=== PATIENT | female | born 1990 | race Caucasian/White ===

== ENCOUNTER 2022-11-30 07:30 | Outpatient (RCR) | payer OTHER, SELFPAY | END 2023-03-09 23:59 | disposition home or self-care (01) | PROVIDERS: PCP Physician Assistant Medical; Visit Provider Physician Assistant Medical | DX: M77.8 Other enthesopathies, not elsewhere classified (principal); Z51.89 Encounter for other specified aftercare | CPT/HCPCS: 97033; 97035; 97140; 97165 ==

== ENCOUNTER 2024-12-05 17:52 | Outpatient (CLI) | payer OTHER, SELFPAY ==
[2024-12-05 18:02] VITALS: BP 120/63; PULSE 92; RESP 16; TEMP 36.9
--- NOTE | 2024-12-05 19:34 | PC.OBNST ---
NST Note NST Note Start: 12/05/24 19:11 Freq: ONCE Status: Active Protocol: Document 12/05/24 19:31 ABP (Rec: 12/05/24 19:34 ABP [id number]) NST Note 4 Para (# of births) 2 EDC 02/23/25 Gestational Age In Weeks & Days 28 Weeks & 4 Days High Risk Factors Diabetes - Preexisting Type II Insulin Patient Presented with Complaint(s) of Decreased movement, Headache,Other Other Complaints Patient having low blood sugars after 20 units of Novolog with lunch. Reactive Yes Appropriate for Gestational Age Yes YUE Hilliard RNC Date 12/05/24 Reactive Yes Appropriate for Gestational Age Yes YUE Hickey RN Date 12/05/24 OB NST charge Yes Complete NST Note via Write Note Yes The provider's electronic signature indicates the NST is reactive/appropriate for gestational age. *Note to provider: If an addendum is required, open the patient's chart and click on the note under the Nurse/Allied Health tab.
== END 2024-12-05 18:40 | disposition home or self-care (01) ==
LOC: OB OUT 17:53 → OB 17:54
PROVIDERS: PCP Physician Assistant Medical; Visit Provider Family Medicine
DX: O24.419 Gestational diabetes mellitus in pregnancy, unspecified control (principal); O36.8130 Decreased fetal movements, third trimester, not applicable or unspecified; Z3A.28 28 weeks gestation of pregnancy
CPT/HCPCS: 59025; G0463

== ENCOUNTER 2025-02-19 16:39 | Inpatient (IN) | payer OTHER, SELFPAY ==
[2025-02-19 16:55] VITALS: RESP 16; TEMP 36.9
--- NOTE | 2025-02-19 17:10 | PM.OBHPLI ---
OB - H&P: HPI Labor/Induction History of Present Illness Date Seen: 02/19/25 Chief Complaint: The patient is a 34 year old at 39.3 weeks gestation by first trimester, who presents for induction of labor secondary to T2DM on insulin. Chief complaint: IOL - Type 2 DM : 4 Para: 2 Narrative: Vilma Richardson is a 34 year old at 39.3 weeks' gestation by first trimester US who presents today for IOL secondary to T2DM on insulin. Was seen in clinic earlier today for BPP and score was 6/8 with points off for breathing. She was scheduled for induction today. Additional notable pre-yuko factors: history of pituitary microadenoma Depression Obesity AMA at delivery (age 34) hx of anemia hx of latent TB (treated in 2009) Idiopathic scoliosis of thoracic spine heart murmur She reports she has been feeling well. Denies headache, vision changes, RUQ pain, or changes in edema. Has had normal movement. Reports she has been cramping/viridiana at home. Denies vaginal bleeding or LOF. History of Present Dating criteria: based on 1st trimester US only care: good care Labs Blood type: O (+) positive Rubella: nonimmune RPR/VDLR: nonreactive GBS status: negative HBsAG: negative Meds Home Medications and Allergies Home Medications ?Medication ?Instructions ?Recorded ?Confirmed ?Type aspirin 81 mg capsule 81 mg PO DAILY 12/05/24 02/19/25 History docosahexaenoic acid 200 mg 200 mg PO DAILY 12/05/24 02/19/25 History capsule ( DHA) insulin aspart U-100 100 unit/mL 20 unit subcut TID 12/05/24 02/19/25 History (3 mL) subcutaneous pen (Novolog FlexPen U-100 Insulin aspart) ferrous sulfate 325 mg (65 mg 325 mg PO DAILY 02/19/25 02/19/25 History iron) tablet (iron) Allergies Allergy/AdvReac Type Severity Reaction Status Date / Time No Known Drug Allergies Allergy Verified 02/19/25 16:49 OB - H&P: Exam Physical Exam: Narrative: Gen: alert, pleasant, NAD Resp: breathing comfortable on RA, CTA b/l Heart: RRR, systolic murmur noted (c/w prior) Abd: gravid, nontender to palpation : cervix 1 cm/thick/high Extremities: trace b/l LE edema Detailed Labor and Delivery Exam: Patient Gravid: yes Dilation (cm): 1 Tachysystole: No Fetus (Single): Amniotic Membrane Status: intact Heart Rate Baseline: 140 Monitor Accelerations: Present Monitor Decelerations: None Snf Variability: Moderate (6-25) OB - Problem Based A/P Additional Plan (1) Term : Status: Acute (2) Type 2 diabetes mellitus in : Status: Acute (3) Anemia affecting : Status: Acute Plan Patient presents for IOL secondary to Type 2 diabetes on insulin. Blood sugars have been well controlled in . Last A1C on 01/28/25 was 5.6%. Growth US at 36w2d with EFW 2866 g, 49th percentile. IOL - discussed options including Cook catheter + pitocin vs Cytotec. Patient prefers Cytotec. Plan on vaginal cytotec per protocol. T2DM on insulin - blood sugar monitoring per protocol - while eating, continue to follow Novolog dosing as usual (breakfast 22 units, lunch 22 units, dinner 24 units) - Lantus dosing to be reduced overnight; usually administers 7 units HS. Plan on 4 units HS this evening. Anemia - on PO iron history of pituitary microadenoma Depression Obesity AMA at delivery (age 34) Hx of latent TB (treated in 2009) Idiopathic scoliosis of thoracic spine Heart murmur - noted, stable Dr. Quinn will be managing induction overnight tonight. I will resume management on 02/20/25 at 0700. Inez Canales DO
[2025-02-19 17:23] LABS: Hematocrit 35.6 % (33.0-51.0); Hemoglobin* 11.8 gm/dL (12.0-16.0); Immature Granulocytes Abs Auto 0.02 K/uL (0.00-0.30); Immature Granulocytes Pct Auto 0.2 %; Lymphocytes Absolute Auto 2.04 K/uL (0.90-2.90); Mean Corpuscular HGB Conc 33 gm/dL (32-36); Mean Corpuscular Hemoglobin 28 pg (26-34); Mean Corpuscular Volume 85 fL (80-100); RDW Coefficient of Variation % 15.6 % (11.5-15.5); Red Blood Count 4.17 m/uL (4.00-5.20); White Blood Count* 8.21 K/uL (4.50-11.00)
[2025-02-19 17:27] LABS: Slide Review Reflex No
[2025-02-19 17:42] VITALS: BMI 36.2
[2025-02-19] MEDS: INSULIN ASPART 100 UNIT/ML SUBCUT (18:12)
[2025-02-19 19:42] VITALS: BP 138/77; PULSE 88; RESP 16; TEMP 36.8
[2025-02-20] VITALS (33 sets, daily range): BP systolic 117–143; BP diastolic 56–83; PULSE 59–91; RESP 16–18; TEMP 36.4–36.9; O2SAT 97–100
[2025-02-20 04:11] LABS: Hematocrit 34.1 % (33.0-51.0); Hemoglobin* 11.3 gm/dL (12.0-16.0); Mean Corpuscular HGB Conc 33 gm/dL (32-36); Mean Corpuscular Hemoglobin 29 pg (26-34); Mean Corpuscular Volume 86 fL (80-100); Red Blood Count 3.95 m/uL (4.00-5.20); White Blood Count* 9.97 K/uL (4.50-11.00)
[2025-02-20 04:17] LABS: Slide Review Reflex No
[2025-02-20 04:26] LABS: Alanine Aminotransferase* 41 U/L (4-35); Aspartate Amino Transferase* 47 U/L (12-35); Blood Urea Nitrogen* 6 mg/dL (5-24); Creatinine* 0.5 mg/dL (0.5-1.5); Est. Creatinine Clearance* 124.21; Estimated Glomerular Filt Rate 125 ml/min
[2025-02-20 04:46] LABS: Protein Creatinine Ratio Urine 0.66 (0-0.19)
[2025-02-20] MEDS: INSULIN ASPART 100 UNIT/ML SUBCUT ×2 (08:00→12:29)
--- NOTE | 2025-02-20 08:03 | PM.OBPNL ---
Subjective Date Seen: 02/20/25 Narrative: Patient had two elevated BPs overnight that were not 4 hours apart. Pre-eclampsia labs obtained notable for PCR 0.66, AST 47, ALT 41. PCR elevated in the context of bloody show, complicating interpretation. BP have been normal since. She did pass one large clot but has been stable since. She is s/p 4 doses of vaginal cytotec. Reports ctx feel like menstrual cramps. Objective Exam: Gen: alert, pleasant, comfortable Resp: breathing comfortably on room air Cervix: 4/50%/-3 (cortez 6) Vital Signs: Last Vital Signs Temp 97.9 F 02/20/25 03:42 Pulse 79 02/20/25 07:34 Resp 18 02/20/25 03:42 BP 126/74 02/20/25 07:34 Pulse Ox 97 02/20/25 07:34 Contractions Contraction Frequency: Q2-6 min Contraction pattern: Irregular Assessment Assessment: induction ongoing Heart Rate Baseline: 140 Assisted Variability: Moderate (6-25) Monitor Accelerations: Absent Monitor Decelerations: None Plan Plan: Ongoing IOL secondary to Type 2 diabetes on insulin. Blood sugars have been well controlled in . Last A1C on 01/28/25 was 5.6%. Growth US at 36w2d with EFW 2866 g, 49th percentile. IOL - s/p 4 doses vaginal cytotec - head is not well applied to cervix so deferred AROM at this time - plan to begin Pitocin titration Elevated blood pressure & proteinuria - Pt with two elevated BPs 40 minutes apart & elevated PCR (0.66) in the setting of vaginal bleeding - at this time, patient does not meet criteria for pre-eclampsia. Should she have another elevated pressure, then she would meet criteria. T2DM on insulin - blood sugar monitoring per protocol - while eating, continue to follow Novolog dosing as usual (breakfast 22 units, lunch 22 units, dinner 24 units) - Lantus dosing to be reduced overnight; usually administers 7 units HS. Plan on 4 units HS this evening. Anemia - on PO iron history of pituitary microadenoma Depression Obesity AMA at delivery (age 34) Hx of latent TB (treated in 2009) Idiopathic scoliosis of thoracic spine Heart murmur - noted, stable Inez Canales DO
[2025-02-20] MEDS: OXYTOCIN 30 unit/500 ML in NS 30 UNIT/500 ML BAG IVPB (08:10)
[2025-02-20] MEDS: LACTATED RINGERS 1000 ML 1,000 ML 75 ML IV (08:16)
--- NOTE | 2025-02-20 12:15 | P.OBPN_ITS ---
Subjective Date Seen: 02/20/25 Narrative: Pt has been ambulating. Has passed one additional small clot since this morning. Noticing some lower back pain and is becoming more uncomfortable with contractions. Objective Vital Signs: Last Vital Signs Temp 97.5 F L 02/20/25 11:32 Pulse 73 02/20/25 11:32 Resp 16 02/20/25 09:45 BP 126/75 02/20/25 11:32 Pulse Ox 99 02/20/25 11:32 Pelvic Exam Dilation (cm): 6 Effacement (%): 50 Station: -3 Contractions Contraction Frequency: Q2-3 min Contraction pattern: Regular Pitocin Rate (mU/min): 6 Assessment Station: -3 Amniotic Membrane Status: AROM (light meconium-stained fluid) Heart Rate Baseline: 130 Plate And Frame Filter Operator Variability: Moderate (6-25) Monitor Accelerations: Present Monitor Decelerations: Variable Plan Plan: AROM with light mec-stained fluid. Plan for peds provider to attend delivery. Continue pitocin titration. Anticipate .
[2025-02-20] MEDS: ONDANSETRON 2 MG/ML inj 4 MG IV (15:29)
--- NOTE | 2025-02-20 15:42 | PM.OBPNL ---
Subjective Date Seen: 02/20/25 Narrative: Uncomfortable with contractions. Using nitrous oxide for pain management. Feeling more pressure with contractions. Consents to exam. Objective Vital Signs: Last Vital Signs Temp 97.8 F 02/20/25 14:49 Pulse 73 02/20/25 14:49 Resp 16 02/20/25 09:45 BP 126/66 02/20/25 14:49 Pulse Ox 99 02/20/25 13:27 Pelvic Exam Dilation (cm): 8 Effacement (%): 90 Station: 0 Contractions Contraction Frequency: Q2-3 min Contraction pattern: Regular Pitocin Rate (mU/min): 10 Assessment Assessment: active labor Station: 0 Amniotic Membrane Status: AROM (light meconium-stained fluid) Heart Rate Baseline: 130 Monitor Accelerations: Present Monitor Decelerations: Early Plan Plan: Continue current management. Fluid has been clear - has not had additional meconium-staining noted since AROM. BP have been WNL. Anticipate .
[2025-02-20] MEDS: LIDOCAINE 1 % PF 30 ML INJECTION (16:40)
[2025-02-20] MEDS: miSOPROStoL 800 MCG/4 TABLET PR (16:59)
[2025-02-20] MEDS: ACETAMINOPHEN 500 MG TABLET 1000 MG PO (17:17)
--- NOTE | 2025-02-20 17:25 | W.PM.VAGDEL1 ---
Procedure Procedure Done: Global Events: Labor Augmentation, AMA and Other (Type 2 Diabetes on insulin) Intrapartal Events: Labor Augmentation, Labor Induction and Other (light meconium fluid) Delivery augmentation: rupture of membranes and pitocin Delivery monitor: external FHT Route of delivery: Laceration description: Perineal - 2nd Degree Delivery repair: Vicryl Estimated blood loss (mL): 200 Anesthesia type: Local (for perineal repair) Narrative: Patient is a G4 now P3 who presented for IOL secondary to T2DM on insulin. Induction began at 39.3 weeks' gestation and she delivered at 39.4. course is notable for T2DM on insulin and anemia. She received 4 doses of vaginal cytotec, the pitocin titration was started when cervix was favorable. AROM occurred on 02/20 at 12:09 PM with light meconium-stained fluid noted. She was complete at 1619 and stage II began. She pushed effectively and delivered a viable male at 16:23. Apgars 7 and 8. There was a nuchal cord x1. There was a 2nd degree perineal tear that was repaired in the usual fashion with 3-0 Vicryl. She received Pitocin post-. Placenta delivered spontaneously and intact. She had a steady flow of vaginal bleeding following delivery and rectal cytotec was administered. Following this, bleeding was appropriate. There was a 3-vessel cord. Regarding diabetes management, plan to return to usual HS Lantus this evening (7 units) and sliding-scale insulin with meals. Infant Infant Gender: Male presentation: vertex Placental Delivery Description: Spontaneous Cord Description: 3 Vessels and Nuchal Cord
[2025-02-20] MEDS: IBUPROFEN 600 MG TABLET PO (20:31)
[2025-02-21] MEDS: ACETAMINOPHEN 500 MG TABLET 1000 MG PO ×3 (03:04→15:08)
[2025-02-21 03:07] VITALS: BP 98/61; PULSE 63; RESP 16; TEMP 36.3; O2SAT 98
[2025-02-21] MEDS: DOCUSATE SODIUM 100 MG CAPSULE PO (04:19)
[2025-02-21] MEDS: IBUPROFEN 600 MG TABLET PO ×2 (04:24→12:41)
[2025-02-21 06:18] LABS: Hemoglobin* 10.3 gm/dL (12.0-16.0)
--- NOTE | 2025-02-21 07:48 | PM.OBDSVD1 ---
DS: Providers Provider Date Seen: 02/21/25 Date of admission: 02/19/25 16:39 Primary care physician: Inez Canales DO Admitting Clinician: Inez Canales DO Attending Physician on discharge: Lea Quinn MD DS: Diagnosis Discharge Diagnosis (1) Normal vaginal delivery: Status: Acute Problem details: 34 yo who presented for IOL secondary to T2DM on insulin, had of Bb. (2) Anemia affecting : Status: Acute Problem details: Hb 10.3 on day of discharge (3) Type 2 diabetes mellitus in : Status: Acute Problem details: Type II diabetes, not on medications prior to . Had long- and short-acting insulin during . Did not require mealtime insulin . Lantus decreased to 5 units at discharge. Recommend patient stop Lantus if she has AM fasting BG <90 or has any symptomatic hypoglycemia. Follow-up with PCP at weight check. Exam Narrative: Exam Narrative: Gen: No acute distress CV: Regular rate and rhythm, normal S1,S2, no murmurs Resp: Normal rate and effort, clear to auscultation bilaterally Abd: Soft, uterus firm and nontender at umbilicus Ext: Warm, dry, 2+ pedal pulses, trace edema bilaterally. Calves non-tender to palpation. Const: Vital Signs, click to edit/add: Vital Signs - 24 hr 02/20/25 08:57 02/20/25 09:43 02/20/25 09:44 Temperature Pulse Rate 83 86 Pulse Rate [Pulse Oximeter] Respiratory Rate Blood Pressure 117/72 119/65 Blood Pressure [Le ft Arm] Pulse Oximetry 98 Oxygen Delivery Me thod 02/20/25 09:45 02/20/25 10:33 02/20/25 11:32 Temperature 98.5 F 97.5 F L Pulse Rate 77 73 Pulse Rate [Pulse Oximeter] Respiratory Rate 16 Blood Pressure 132/76 126/75 Blood Pressure [Le ft Arm] Pulse Oximetry 99 Oxygen Delivery Me thod 02/20/25 13:27 02/20/25 14:49 02/20/25 16:37 Temperature 97.9 F 97.8 F Pulse Rate 81 73 Pulse Rate [Pulse Oximeter] Respiratory Rate Blood Pressure 132/80 126/66 Blood Pressure [Le ft Arm] Pulse Oximetry 99 [facility] 02/20/25 16:41 02/20/25 16:42 02/20/25 16:45 Temperature Pulse Rate Pulse Rate [Pulse Oximeter] Respiratory Rate 18 16 Blood Pressure Blood Pressure [Le ft Arm] Pulse Oximetry 99 Oxygen Delivery Nj thod 02/20/25 16:47 02/20/25 16:51 02/20/25 16:52 Temperature Pulse Rate 67 Pulse Rate [Pulse Oximeter] Respiratory Rate 16 Blood Pressure 128/73 Blood Pressure [Le ft Arm] Pulse Oximetry 99 100 Oxygen Delivery Nj thod 02/20/25 16:52 02/20/25 16:57 02/20/25 17:02 Temperature Pulse Rate Pulse Rate [Pulse Oximeter] Respiratory Rate 18 Blood Pressure Blood Pressure [Le ft Arm] Pulse Oximetry 99 99 [facility] 02/20/25 17:07 02/20/25 17:08 02/20/25 17:08 Temperature Pulse Rate 85 Pulse Rate [Pulse Oximeter] Respiratory Rate 18 Blood Pressure 130/71 Blood Pressure [Le ft Arm] Pulse Oximetry 100 Oxygen Delivery Nj thod 02/20/25 17:23 02/20/25 17:23 02/20/25 17:38 Temperature Pulse Rate 66 68 Pulse Rate [Pulse Oximeter] Respiratory Rate 18 Blood Pressure 136/74 133/75 Blood Pressure [Le ft Arm] Pulse Oximetry Oxygen Delivery Nj thod 02/20/25 17:38 02/20/25 17:53 02/20/25 17:53 Temperature 98.1 F Pulse Rate 72 Pulse Rate [Pulse Oximeter] Respiratory Rate 18 16 Blood Pressure 127/73 Blood Pressure [Le ft Arm] Pulse Oximetry Oxygen Delivery Nj thod 02/20/25 18:08 02/20/25 18:08 02/20/25 18:23 Temperature Pulse Rate Pulse Rate [Pulse Oximeter] Respiratory Rate 18 Blood Pressure 126/66 120/58 L Blood Pressure [Le ft Arm] Pulse Oximetry Oxygen Delivery Nj thod 02/20/25 18:23 02/20/25 18:23 02/20/25 18:38 Temperature Pulse Rate 70 Pulse Rate [Pulse Oximeter] Respiratory Rate 16 Blood Pressure 117/56 L Blood Pressure [Le ft Arm] Pulse Oximetry Oxygen Delivery Nj thod 02/20/25 18:38 02/20/25 18:38 02/20/25 21:40 Temperature 98.3 F Pulse Rate 59 L Pulse Rate [Pulse Oximeter] 63 Respiratory Rate 16 16 Blood Pressure Blood Pressure [Le ft Arm] 128/74 Pulse Oximetry 98 Oxygen Delivery Me thod Room Air 02/21/25 03:07 Temperature 97.4 F L Pulse Rate Pulse Rate [Pulse Oximeter] 63 Respiratory Rate 16 Blood Pressure Blood Pressure [Le ft Arm] 98/61 Pulse Oximetry 98 Oxygen Delivery Me thod Room Air OB - DS: Summary Hospital Course Hospital Course: Patient is a 34 yo G4 now P3 who presented for IOL secondary to T2DM on insulin. Induction began at 39.3 weeks' gestation and she delivered at 39.4 on 02/20/2025. course is notable for T2DM on insulin and anemia. She received 4 doses of vaginal cytotec, the pitocin titration was started when cervix was favorable. AROM occurred on 02/20 at 12:09 PM with light meconium-stained fluid noted. She was complete at 1619 and stage II began. She pushed effectively and delivered a viable male at 16:23. Apgars 7 and 8. She had a 2nd degree perineal laceration, repaired. Bleeding was minimal. She had two elevated blood pressures (142/80 and 143/74) about 40 minutes apart. Labs drawn with slightly elevated AST/ALT and PCR. She had no further BP elevation and not thought to have pre-eclampsia. Her blood sugars were significantly improved. Long-acting insulin was continued given her prepregnancy diagnosis of diabetes. She did not require mealtime insulin. Peripartum Data Infant delivery method: Vaginal Laceration description: Perineal - 2nd Degree Gender: Male Status at Discharge Functional status at discharge: independent ambulation Overall status at discharge: patient is progressing back to baseline Time Spent with Patient Time attestation: Total time spent providing and/or coordinating discharge services: Discharge Plan Discharge Disposition: Home, Self-Care Date of Admission: 02/19/25 16:39 Consulting Providers: Inez Canales Primary Care Provider: Inez Canales Condition: Stable Anticipated Discharge Date/Time: 02/21/25 17:00 Discharge Medications: New insulin glargine [Lantus Solostar U-100 Insulin] 100 unit/mL (3 mL) Insulin Pen 5 unit subcut HS 30 Days Qty: 1.5 0RF Continued DHA 200 mg capsule 200 mg PO DAILY ferrous sulfate [iron] 325 mg (65 mg iron) tablet 325 mg PO DAILY Discontinued aspirin 81 mg capsule 81 mg PO DAILY insulin aspart U-100 [Novolog FlexPen U-100 Insulin] 100 unit/mL (3 mL) insulin pen 20 unit subcut TID Discharge Orders: Discharge Order (Routine); Ordered 02/21/25 Ordered By: Lolly Day Patient Education: Hypoglycemia in a Person with Diabetes (DC), Type 2 Diabetes Management for Adults (DC), OB Vaginal/Breast Feeding Additional Instructions: Follow-up appointment on Saturday 02/24 at 11:40AM with Dr Canales. Please arrive 20 minutes early to register baby. Follow Up Appointments: Inez Canales DO [Primary Care Provider, Family Practice] Forms: [employer] Info Instructions DS:Data Additional Comments Additional comments: - Pelvic rest for 6 weeks (no intercourse, tampons or douching), or until one week after vaginal bleeding stops. - Daily activities for the first week should be limited to taking care of patient and her baby, and only as tolerated. - Call MD if fever > 100.4 degrees, bleeding more than 1 pad / hour, foul-smelling discharge, passage of golf-ball sized blood clots, or worsening of pain not controlled by medications.
[2025-02-21 09:09] VITALS: BP 110/75; PULSE 56; RESP 18; TEMP 36.2; O2SAT 99
[2025-02-21 14:01] VITALS: BP 131/76; PULSE 67; RESP 16; TEMP 36.5; O2SAT 99
[2025-02-21] MEDS: MEASLES,MUMPS,RUBELLA VACC/PF 1 DOSE INJ 1 EACH SUBCUT (18:18)
== END 2025-02-21 19:10 | disposition home or self-care (01) | DRG 807 ==
PROVIDERS: Admitting Provider Family Medicine; PCP Family Medicine; Visit Provider Family Medicine
DX: O24.12 Pre-existing type 2 diabetes mellitus, in childbirth (principal); Z37.0 Single live birth; E11.8 Type 2 diabetes mellitus with unspecified complications; Z79.4 Long term (current) use of insulin; O70.1 Second degree perineal laceration during delivery; O77.0 Labor and delivery complicated by meconium in amniotic fluid; O99.02 Anemia complicating childbirth; D64.9 Anemia, unspecified; M41.24 Other idiopathic scoliosis, thoracic region; R01.1 Cardiac murmur, unspecified; Z3A.39 39 weeks gestation of pregnancy
CPT/HCPCS: 36415; 59200; 82565; 82570; 84156; 84450; 84460; 84520; 85018; 85025; 85027; 86592; 86850; 86900; 86901; A9270; J1815; J2003; J2270; J2405; J3010; J7120

== ENCOUNTER 2025-03-12 16:05 | Inpatient (IN) | payer OTHER, MEDICAID, SELFPAY ==
[2025-03-12] VITALS (7 sets, daily range): BP systolic 112–138; BP diastolic 68–83; PULSE 75–110; RESP 15–20; TEMP 36.8–37.4; O2SAT 96–100; BMI 35.7
--- NOTE | 2025-03-12 | CRLHL7_ITS ---
For Patients: As a result of the Century Cures Act, medical imaging exams and procedure reports are released immediately into your electronic medical record. You may view this report before your referring provider. If you have questions, please contact your health care provider. INDICATION: Fever. Pelvic pain. Three weeks . TECHNIQUE: Ultrasound pelvis transabdominal and transvaginal for better assessment or to better visualize the endometrium. Real-time sonographic images with spectral and color Doppler imaging of the ovaries were obtained. COMPARISON: None. FINDINGS: Uterus measures 10 x 6 x 9.1 cm. No discrete uterine mass. Small amount of endometrial fluid with apparent mild echogenic debris. Endometrial stripe is heterogeneous, poorly defined and demonstrates increased vascularity. No discrete uterine mass. Right ovary is 3.4 x 1.8 x 2 cm and is within normal limits. Normal-appearing color and spectral Doppler flow in the right ovary. Right adnexal region is unremarkable. Left ovary is 2.9 x 2.3 x 2.4 cm and is within normal limits. Normal-appearing color and spectral Doppler flow in the left ovary. Left adnexal region is unremarkable. No pelvic free fluid. IMPRESSION: 1. Findings worrisome for endometritis. 2. No significant free fluid. Dictated by John Daigle MD @ 03/12/2025 5:55:08 PM Dictated by: John Daigle MD @ 03/12/2025 17:55:17 (Electronically Signed)
[2025-03-12 16:36] LABS: Lactate Sepsis w/Reflex* 0.7 mmol/L (0.5-1.9)
[2025-03-12 16:39] LABS: Hematocrit 39.4 % (33.0-51.0); Hemoglobin* 13.2 gm/dL (12.0-16.0); Immature Granulocytes Pct Auto 1.0 %; Mean Corpuscular HGB Conc 34 gm/dL (32-36); Mean Corpuscular Hemoglobin 29 pg (26-34); Mean Corpuscular Volume 85 fL (80-100); RDW Coefficient of Variation % 14.0 % (11.5-15.5); Red Blood Count 4.62 m/uL (4.00-5.20); White Blood Count* 11.65 K/uL (4.50-11.00)
[2025-03-12 16:50] LABS: Immature Granulocytes Abs Auto 0.10 K/uL (0.00-0.30); Lymphocytes Absolute Auto 1.90 K/uL (0.90-2.90); Slide Review Reflex No
[2025-03-12 16:54] LABS: Albumin* 4.2 g/dL (3.3-5.0); Chloride* 108 mmol/L (96-114); Potassium* 3.8 mmol/L (3.6-5.1); Sodium* 136 mmol/L (135-149)
[2025-03-12 16:57] LABS: Alanine Aminotransferase* 26 U/L (4-35); Alkaline Phosphatase* 103 U/L (40-150); Anion Gap 6 mEq/L (7-15); Aspartate Amino Transferase* 30 U/L (12-35); Bilirubin Total* 0.6 mg/dL (0.1-1.5); Blood Urea Nitrogen* 9 mg/dL (5-24); Carbon Dioxide* 22 mmol/L (20-32); Creatinine* 0.5 mg/dL (0.5-1.5); Est. Creatinine Clearance* 124.21; Estimated Glomerular Filt Rate 125 ml/min; Total Protein* 7.5 g/dL (6.0-8.3)
[2025-03-12 16:58] LABS: Calcium* 9.1 mg/dL (8.4-10.6); Glucose* 129 mg/dL (60-115)
--- NOTE | 2025-03-12 17:38 | ED_ITS ---
HPI - General Adult General Date Seen: 03/12/25 Chief complaint: Post OB/Post- Complication Stated complaint: 3 weeks post - fever, cramping Time Seen by Provider: 03/12/25 16:08 Source: patient Mode of arrival: ambulatory Limitations: no limitations History of Present Illness HPI narrative: Patient is a 34-year-old female with history of diabetes, preeclampsia presenting to the emergency department 3 weeks for a fever and pelvic pain. She states today she dull up the fever and lower abdominal cramping. Also had a headache and a small amount of vaginal bleeding. Took Tylenol for her fever. She denies any diarrhea constipation. Denies any nausea, vomiting, chest pain, shortness of breath, lightheadedness, dizziness, weakness, numbness. States she has had pain like this before with a previous when she had endometritis. She recovered well from that. States this feels very similar. Has not noticed any vaginal discharge. No other complications during the . It was a vaginal delivery done here in [place]. No other concerns noted. Related Data Home Medications ?Medication ?Instructions ?Recorded ?Confirmed docosahexaenoic acid 200 mg 200 mg PO DAILY 12/05/24 0 02/19/25 capsule ( DHA) ferrous sulfate 325 mg (65 mg 325 mg PO DAILY 02/19/25 02/19/25 iron) tablet (iron) Previous Rx's ?Medication ?Instructions ?Recorded insulin glargine 100 unit/mL (3 5 unit (0.05 mL) subcu t HS 30 days 02/21/25 mL) subcutaneous pen (Lantus #1.5 mL Solostar U-100 Insulin) Allergies Allergy/AdvReac Type Severity Reaction Status Date / Time No Known Drug Allergies Allergy Verified 02/19/25 16:49 Review of Systems Status of ROS: Reports: 10 or more systems reviewed and unremarkable except as noted in History and below [facility] Medical History Anemia affecting ?O99.019 - Anemia complicating , unspecified trimester (ICD-10) Type 2 diabetes mellitus in ?O24.119 - Pre-existing type 2 diabetes mellitus, in , unspecified trimester (ICD-10) Term ?Z34.90 - Encounter for supervision of normal , unspecified, unspecified trimester (ICD-10) Social History What is your current living situation?: I presently have a place to live Problems where you live: no known problems In the past 12 months, utilities in danger of being shut off: no In past 12 months, lack of transportation kept you from medical appts, meetings, work, or getting things needed for daily living: no In the past 12 mos, have been you worried that your food would run out before you had money to buy more?: never true In the past 12 mos, the food you bought just didn't last and you didn't have money to buy more?: never true Smoking Status: Former smoker How often does anyone, including family, friends and others, physically hurt you : never How often does anyone, including family, friends and others, insult or talk down to you: never How often does anyone, including family, friends and others, threaten you with harm: never How often does anyone, including family, friends and others, scream or curse at you: never Exam Narrative: Exam Narrative: Const: Well-nourished, Well-developed, in mild distress Eyes: PERRL, no conjunctival injection, and symmetrical lids HENT: Atraumatic external nose and ears. Moist mucous membranes. Neck: Symmetric, trachea midline, No thyromegaly. CVS: RRR, No murmurs or gallops. Peripheral pulses 2+ and equal in all extremities RESP: Unlabored respiratory effort. Clear to auscultation bilaterally. GI: Lower abdominal tenderness, Nondistended, No rebound or guarding. MSK:Extremities w/o deformity, Normal Active ROM Skin: Warm, Dry. No rashes or lesions. Neuro: Normal Muscle tone, No focal neurological deficits. Psych: Awake, Alert, & Oriented x3. Appropriate mood and affect. Const: Vital Signs, click to edit/add: Vital Signs - 24 hr 03/12/25 16:10 03/12/25 17:30 03/12/25 17:45 Temperature 98.2 F Pulse Rate 92 Pulse Rate [Pulse Oximeter] 110 H Respiratory Rate 18 15 Blood Pressure [Ri ght Upper Arm] 138/81 Pulse Oximetry 97 97 Oxygen Delivery Me thod Room Air Course Vital Signs Vital signs: Initial Vital Signs Temperature 98.2 F 03/12/25 16:10 Temperature Source Temporal Artery Scan 03/12/25 16:10 Pulse Rate 110 H 03/12/25 16:10 Respiratory Rate 18 03/12/25 16:10 Blood Pressure 138/81 03/12/25 16:10 Blood Pressure Mean 100 03/12/25 16:10 Blood Pressure Position Sitting 03/12/25 16:10 Pulse Oximetry 97 03/12/25 16:10 Oxygen Delivery Method Room Air 03/12/25 16:10 Vital Signs Temperature 98.2 F 03/12/25 16:10 Pulse Rate 110 H 03/12/25 16:10 Respiratory Rate 18 03/12/25 16:10 Blood Pressure 138/81 03/12/25 16:10 Pulse Oximetry 97 03/12/25 16:10 Oxygen Delivery Method Room Air 03/12/25 16:10 Temperature 98.2 F 03/12/25 16:10 Pulse Rate 92 03/12/25 17:30 Respiratory Rate 15 03/12/25 17:45 Blood Pressure 138/81 03/12/25 16:10 Pulse Oximetry 97 03/12/25 17:30 Oxygen Delivery Method Room Air 03/12/25 16:10 Medications Administered Medications: Discontinued Medications Generic Name Dose Route Start Last Admin Trade Name Freq PRN Reason Stop Dose Admin Sodium Chloride 1,000 mls @ 1,000 mls/hr 03/12/25 16:30 03/12/25 18:31 0.9 % Sodium Chloride 1000 Ml IV 03/12/25 17:29 Infused .Q1H ALXE Infusion Medical Decision Making [facility] Narrative Medical decision making narrative: Patient is a 34-year-old female presenting to the emergency department for fever and pelvic pain. She does have a history of endometritis and I am concerned she is having it again. She had a fever at home and tachycardia here in the emergency department does meet septic criteria. Sepsis workup ordered. Also give her a L fluids for tachycardia. Urinalysis, blood cultures, lactate, magnesium, CMP, CBC, viral swabs all ordered. Also do a pelvic ultrasound for better evaluation. Differential could also include appendicitis, diverticulitis, UTI. Lab work returned showing no concerning abnormalities. White count within normal limits. Viral swabs are negative. EKG shows no concerning abnormalities. Troponin within normal limits. Overall patient is appearing well and her heart rate has improved. she is satting well on room air. Ultrasound returned showing findings concerning for endometritis. Due to this I did speak to the on-call OB provider who recommends 24 hours of IV antibiotics inpatient. Recommend gentamicin and clindamycin. Patient is agreeable to this plan. She will be admitted to the OB floor Lab Data Labs: Lab Results 03/12/25 Range/Units 16:25 WBC 11.65 H (4.50-11.00) K/uL RBC 4.62 (4.00-5.20) m/uL Hgb 13.2 (12.0-16.0) gm/dL Hct 39.4 (33.0-51.0) % MCV 85 (80-100) fL MCH 29 (26-34) pg MCHC 34 (32-36) gm/dL RDW Coeff of Stanislaw 14.0 (11.5-15.5) % Plt Count 215 (140-440) K/uL Neut % (Auto) 77.2 H (42.0-72.0) % Lymph % (Auto) 16.6 L (20-44) % [place] % (Auto) 4.2 (0.0-11.0) % Eos % (Auto) 0.8 (0.0-7.0) % Baso % (Auto) 0.2 (0.0-3.0) % Neut # (Auto) 9.00 H (1.7-7.0) K/uL Lymph # (Auto) 1.90 (0.90-2.90) K/uL [place] # (Auto) 0.50 (0.00-0.90) K/UL Eos # (Auto) 0.10 (0.00-0.50) K/uL Baso # (Auto) 0.00 (0.00-0.30) K/uL Abs Immat Gran (auto) 0.10 (0.00-0.30) K/uL Imm/Tot Granulo (auto) 1.0 % Sodium 136 (135-149) mmol/L Potassium 3.8 (3.6-5.1) mmol/L Chloride 108 (96-114) mmol/L Carbon Dioxide 22 (20-32) mmol/L Anion Gap 6 L (7-15) mEq/L BUN 9 (5-24) mg/dL Creatinine 0.5 (0.5-1.5) mg/dL Estimated Creat Clear 124.21 Estimated GFR 125 ml/min Glucose 129 H (60-115) mg/dL Lactate 0.7 (0.5-1.9) mmol/L Calcium 9.1 (8.4-10.6) mg/dL Magnesium 1.9 (1.5-2.6) mg/dL Total Bilirubin 0.6 (0.1-1.5) mg/dL AST 30 (12-35) U/L ALT 26 (4-35) U/L Alkaline Phosphatase 103 (40-150) U/L Troponin I < 0.01 (0.01-0.04) ng/mL Total Protein 7.5 (6.0-8.3) g/dL Albumin 4.2 (3.3-5.0) g/dL SARS-CoV-2 (PCR) Negative SARS-CoV-2 (Negative) Influenza Type A (PCR) Negative PCR FLU A (Negative) Influenza Type B (PCR) Negative PCR FLU B (Negative) RSV (PCR) Negative PCR RSV (Negative) Imaging Data transvaginal ultrasound: Attestation: I have reviewed the pertinent imaging results. Radiologist's impression: 1. Findings worrisome for endometritis. 2. No significant free fluid. Dictated by John Daigle MD @ 03/12/2025 5:55:08 PM ECG Data Attestation: I personally reviewed and interpreted this ECG as follows: Prior ECG tracings: not available for review Interpretation: Normal sinus rhythm with rate of 100 beats per minute, normal intervals, normal axis, no ST or T-wave abnormalities. Discharge Plan Discharge Clinical Impression: Acute endometritis Patient Disposition: Admitted As Observation Condition: Stable
[2025-03-12 17:47] LABS: PCR FLU A Negative PCR FLU A (Negative); PCR FLU B Negative PCR FLU B (Negative); PCR RSV Negative PCR RSV (Negative); SARS PCR* Negative SARS-CoV-2 (Negative)
[2025-03-12] MEDS: CLINDAMYCIN 900 MG/50 ML-D5W 900 MG/50 ML PIGGYBACK 100 MG IVPB (18:57)
[2025-03-12] MEDS: 0.9 % SODIUM CHLORIDE 250 ml 250 ML 75 ML IV (19:00)
--- NOTE | 2025-03-12 19:58 | P.OBHP_ITS ---
OB - H&P: HPI Labor/Induction History of Present Illness Date Seen: 03/12/25 Chief Complaint: The patient is a 34 year old 2 para 2, 3 weeks post from a , who presents with fever and abdominal pain. Chief complaint: 3 weeks post - fever, cramping Narrative: Vilma Richardson is a 34 year old female who is 3 weeks post from an who developed a fever to 103 degrees this morning and abdominal pain. was complicated by type 2 diabetes well controlled on insulin and AMA. She had an uncomplicated induction for these indications and went on to have an . She had negative GBS testing. She had an uncomplicated course until this morning when fever and abdominal pain developed. She denies any increase in lochia, however her bleeding more bright red today than it had been on prior days. She reports no abnormal discharge. No frequency or dysuria. She has had no rashes. She reports no other symptoms of illness to explain her fever including URI symptoms, nausea, vomiting or diarrhea. She developed pp endometritis with her first as well. Review of Systems Status of ROS: Reports: 6 or more systems reviewed and unremarkable except as noted in History and below Meds Home Medications and Allergies Home Medications ?Medication ?Instructions ?Recorded ?Confirmed ?Type docosahexaenoic acid 200 mg 200 mg PO DAILY 12/05/24 0 02/19/25 History capsule ( DHA) ferrous sulfate 325 mg (65 mg 325 mg PO DAILY 02/19/25 02/19/25 History iron) tablet (iron) insulin glargine 100 unit/mL (3 5 unit (0.05 mL) subcu t HS 30 days 02/21/25 Rx mL) subcutaneous pen (Lantus #1.5 mL Solostar U-100 Insulin) Allergies Allergy/AdvReac Type Severity Reaction Status Date / Time No Known Drug Allergies Allergy Verified 02/19/25 16:49 OB - H&P: Exam Physical Exam: Vital signs: Temp Pulse Resp BP Pulse Ox O2 Del Method 99.3 F 83 16 132/83 100 Room Air 03/12/25 18:59 03/12/25 18:59 03/12/25 18:59 03/12/25 18:59 03/12/25 18:59 03/12/25 18:59 Constitutional: Constitutional: no acute distress Routine HEENT Exam: Head: Present atraumatic Eye: Present EOMI and normal appearance ENT: Present mucous membranes moist Routine Neck Exam: Neck: Present full ROM Routine Respiratory Exam: Respiratory: Present CTA bilaterally Routine Cardiovascular Exam: Cardiovascular: RRR Routine Abdominal Exam: Comments: soft, uterus firm 4 cm below umbilicus, but tender to palpation. Routine Extremities Exam: Extremities: Present full ROM Comments: no swelling or calf tenderness Routine Skin Exam: Comments: no rash noted over arms, legs or abdomen Routine Neurological Exam: Present alert, oriented X3 and CN II-XII intact Routine Psychiatric Exam: Present normal affect and normal thought process OB - Results Labs Labs: Short CBC 03/12/25 Range/Units 16:25 WBC 11.65 H (4.50-11.00) K/uL Hgb 13.2 (12.0-16.0) gm/dL Hct 39.4 (33.0-51.0) % Plt Count 215 (140-440) K/uL BMP 03/12/25 16:25 Sodium 136 Potassium 3.8 Chloride 108 Carbon Dioxide 22 BUN 9 Creatinine 0.5 Glucose 129 H Calcium 9.1 Cardiac Enzymes 03/12/25 Range/Units 16:25 Troponin I < 0.01 (0.01-0.04) ng/mL Liver Function 03/12/25 Range/Units 16:25 Total Bilirubin 0.6 (0.1-1.5) mg/dL AST 30 (12-35) U/L ALT 26 (4-35) U/L Alkaline Phosphatase 103 (40-150) U/L Albumin 4.2 (3.3-5.0) g/dL Imaging other: Radiologist's impression: FINDINGS: Uterus measures 10 x 6 x 9.1 cm. No discrete uterine mass. Small amount of endometrial fluid with apparent mild echogenic debris. Endometrial stripe is heterogeneous, poorly defined and demonstrates increased vascularity. No discrete uterine mass. Right ovary is 3.4 x 1.8 x 2 cm and is within normal limits. Normal-appearing color and spectral Doppler flow in the right ovary. Right adnexal region is unremarkable. Left ovary is 2.9 x 2.3 x 2.4 cm and is within normal limits. Normal-appearing color and spectral Doppler flow in the left ovary. Left adnexal region is unremarkable. No pelvic free fluid. IMPRESSION: 1. Findings worrisome for endometritis. 2. No significant free fluid. OB - Problem Based A/P Additional Plan (1) Acute endometritis: Status: Acute (2) Type 2 diabetes mellitus: Status: Acute (3) Anemia: Status: Acute Plan IV antibiotics started--Clindamycin 900 mg Q8 and Gentamicin 250 mg Q24 hours. Discussed continued IV antibiotics until afebrile and no uterine tenderness for 24-48 hours. Once clinically well, ok to d/c without ongoing PO antibiotics. Will continue home dosing of lantus 5 units QHS Continue PO iron and stool softeners.
[2025-03-12] MEDS: IBUPROFEN 600 MG TABLET PO (20:23)
[2025-03-12] MEDS: GENTAMICIN 325 MG in 0.9 % SODIUM CHLORIDE 100 ml 100 ML 108.13 MG IVPB (20:45)
[2025-03-12] MEDS: ACETAMINOPHEN 500 MG TABLET 1000 MG PO (23:04)
[2025-03-12 23:11] LABS: Appearance Urine Clear (Clear)
[2025-03-13] MEDS: CLINDAMYCIN 900 MG/50 ML-D5W 900 MG/50 ML PIGGYBACK 100 MG IVPB ×3 (02:45→18:38)
[2025-03-13] MEDS: IBUPROFEN 600 MG TABLET PO (02:52)
[2025-03-13 02:58] VITALS: BP 93/62; PULSE 63; RESP 16; TEMP 36.6; O2SAT 97
[2025-03-13] MEDS: ACETAMINOPHEN 500 MG TABLET 1000 MG PO ×2 (05:23→12:51)
--- NOTE | 2025-03-13 07:53 | PM.GYNPNNOR ---
BRAND SALES MANAGER- PN:Subj Non-OR Subjective Time Seen by Provider: 07:53 Date Seen: 03/13/25 Interval history: 34 yo s/p on 02/19/25 admitted for post- endometritis last evening. IV abx clinda Q8H and gent Q24H. Uneventful night. Low grade fever, otherwise vitals WNL. Tachycardia resolved. Patient ate breakfast. is with her. S/o was present upon admission, but left to go to work this AM. Patient was informed she needs to have another adult present to assist in care of the infant while she is inpatient. BRAND SALES MANAGER-PN: Obj Exam Physical Exam: Vital signs: Temp Pulse Resp BP Pulse Ox O2 Del Method 97.8 F 63 16 93/62 97 Room Air 03/13/25 02:58 03/13/25 02:58 03/13/25 02:58 03/13/25 02:58 03/13/25 02:58 03/13/25 02:58 BRAND SALES MANAGER - PN: Obj Data Labs Labs: Laboratory Results - last 24 hr 03/12/25 03/12/25 16:25 23:00 WBC 11.65 H RBC 4.62 Hgb 13.2 Hct 39.4 MCV 85 MCH 29 MCHC 34 RDW Coeff of Stanislaw 14.0 Plt Count 215 Neut % (Auto) 77.2 H Lymph % (Auto) 16.6 L [place] % (Auto) 4.2 Eos % (Auto) 0.8 Baso % (Auto) 0.2 Neut # (Auto) 9.00 H Lymph # (Auto) 1.90 [place] # (Auto) 0.50 Eos # (Auto) 0.10 Baso # (Auto) 0.00 Abs Immat Gran (auto) 0.10 Imm/Tot Granulo (auto) 1.0 Sodium 136 Potassium 3.8 Chloride 108 Carbon Dioxide 22 Anion Gap 6 L BUN 9 Creatinine 0.5 Estimated Creat Clear 124.21 Estimated GFR 125 Glucose 129 H Lactate 0.7 Calcium 9.1 Magnesium 1.9 Total Bilirubin 0.6 AST 30 ALT 26 Alkaline Phosphatase 103 Troponin I < 0.01 Total Protein 7.5 Albumin 4.2 Urine Color Yellow Urine Appearance Clear Urine pH 7.0 Ur Specific [place] 1.020 Urine Protein Negative Urine Glucose (UA) Negative Urine Ketones Negative Urine Blood Negative Urine Nitrite Negative Urine Bilirubin Negative Urine Urobilinogen 1.0 Ur Leukocyte Esterase Negative Urine RBC 0-2 Urine WBC 0-2 Ur Squamous Epith Cells Few Urine Bacteria None SARS-CoV-2 (PCR) Negative SARS-CoV-2 Influenza Type A (PCR) Negative PCR FLU A Influenza Type B (PCR) Negative PCR FLU B RSV (PCR) Negative PCR RSV
[2025-03-13 08:15] VITALS: BP 112/70; PULSE 64; RESP 18; TEMP 36.6; O2SAT 96
--- NOTE | 2025-03-13 09:54 | P.DS_ITS ---
DS: Providers Provider Time Seen by Provider: 08:00 Date Seen: 03/13/25 Date of admission: 03/12/25 18:41 Primary care physician: Inez Canales DO Admitting Clinician: Lea Quinn MD Attending Physician on discharge: Lea Quinn MD Date of Discharge: 03/13/25 DS: Diagnosis Discharge Diagnosis (1) Acute endometritis: Status: Acute Problem details: Presented to ED on DOA with fever to 103 at home and uterine tenderness. 3 weeks PP, s/p uncomplicated vaginal delivery on 02/20/25. GBS negative. Tmax 99.4 while inpatient, mildly tachycardic on admission to 110. WBC 11.65 with left shift on admission, otherwise WNL. Pelvic US concernding for endometritis, no evidence of retained products. No blood cultures indicated. Started on IV abx, clindamycin Q8H and gentamicin Q24H. (2) Type 2 diabetes mellitus: Status: Acute Problem details: Blood sugars well-controlled on lantus 5 units nightly. BG 135 on admission. CONSULTING SOLUTION DIRECTOR-Discharge Summary Hospital Course Hospital Course Narrative: Patient is a 34 yo s/p on 02/20/25 who was admitted on 03/12/25 with acute post- endometritis. Received IV abx including clindamycin and genta micin x 24 hours. Endorsed fever to 103 F at home, but remained afebrile during her hospital stay. Tachycardia resolved in the ED. She endorsed significant clinical improvement and resolution of uterine tenderness on the morning of discharge. Plan to continue IV abx and continue to monitor throughout the day. She will receive her second dose of gentamicin at 2100, which will be 24 hours on abx. If she remains afebriel and pain free, ok to discharge this evening after gentamicin. Close follow-up with Dr. Ch at the [facility] scheduled for Monday03/17/25 at 9:10 AM. Time Spent with Patient Time attestation: Total time spent providing and/or coordinating discharge services: Time spent: Greater than 30 minutes CONSULTING SOLUTION DIRECTOR - Exam Physical Exam: Vital signs: Temp Pulse Resp BP Pulse Ox O2 Del Method 97.8 F 64 18 112/70 96 Room Air 03/13/25 08:15 03/13/25 08:15 03/13/25 08:15 03/13/25 08:15 03/13/25 08:15 03/13/25 08:15 Narrative: General appearance: Well-appearing adult female. Alert, oriented and appropriate. Sitting up in hospital bed. HEENT: EOMI, no conjunctival injection or discharge. MMM. Neck: Supple. CV: RRR, no rubs, murmurs or extra heart sounds. Pulm: CTAB, no wheezes, rales or rhonchi. Abdomen: Soft, non-tender. No fundal tenderness. MSK: Moving all extremities. Ext: Warm and well-perfused. No LE edema. Skin: No rashes appreciated over exposed skin. Neuro: Grossly normal strength and sensation. No focal deficits. Psych: Normal affect. CONSULTING SOLUTION DIRECTOR - DS: Data Data Completed and Pending Completed studies during hospitalization: Procedures Delivery of Products of Conception, External Approach (02/19/25) Drainage of Amniotic Fluid, Therapeutic from Products of Conception, Via Natural or Artificial Opening (02/19/25) Introduction of Hormone into Female Reproductive, Via Natural or Artificial Opening (02/19/25) Introduction of Other Hormone into Peripheral Vein, Percutaneous Approach (02/19/25) Repair Perineum Muscle, Open Approach (02/19/25) Labs on day of discharge: Labs from last 24 hours 03/12/25 03/12/25 23:00 16:25 WBC 11.65 H RBC 4.62 Hgb 13.2 Hct 39.4 MCV 85 MCH 29 MCHC 34 RDW Coeff of Stanislaw 14.0 Plt Count 215 Neut % (Auto) 77.2 H Lymph % (Auto) 16.6 L [place] % (Auto) 4.2 Eos % (Auto) 0.8 Baso % (Auto) 0.2 Neut # (Auto) 9.00 H Lymph # (Auto) 1.90 [place] # (Auto) 0.50 Eos # (Auto) 0.10 Baso # (Auto) 0.00 Abs Immat Gran (auto) 0.10 Imm/Tot Granulo (auto) 1.0 Sodium 136 Potassium 3.8 Chloride 108 Carbon Dioxide 22 Anion Gap 6 L BUN 9 Creatinine 0.5 Estimated Creat Clear 124.21 Estimated GFR 125 Glucose 129 H Lactate 0.7 Calcium 9.1 Magnesium 1.9 Total Bilirubin 0.6 AST 30 ALT 26 Alkaline Phosphatase 103 Troponin I < 0.01 Total Protein 7.5 Albumin 4.2 Urine Color Yellow Urine Appearance Clear Urine pH 7.0 Ur Specific [place] 1.020 Urine Protein Negative Urine Glucose (UA) Negative Urine Ketones Negative Urine Blood Negative Urine Nitrite Negative Urine Bilirubin Negative Urine Urobilinogen 1.0 Ur Leukocyte Esterase Negative Urine RBC 0-2 Urine WBC 0-2 Ur Squamous Epith Cells Few Urine Bacteria None SARS-CoV-2 (PCR) Negative SARS-CoV-2 Influenza Type A (PCR) Negative PCR FLU A Influenza Type B (PCR) Negative PCR FLU B RSV (PCR) Negative PCR RSV Discharge Plan Discharge Disposition: Home, Self-Care Date of Admission: 03/13/25 12:22 Attending Provider on Discharge: Vilma Ch Primary Care Provider: Inez Canales Condition: Stable Anticipated Discharge Date/Time: 03/13/25 21:00 Discharge Medications: Continued DHA 200 mg capsule 200 mg PO DAILY ferrous sulfate [iron] 325 mg (65 mg iron) tablet 325 mg PO DAILY insulin glargine [Lantus Solostar U-100 Insulin] 100 unit/mL (3 mL) Insulin Pen 5 unit subcut HS 30 Days Qty: 1.5 0RF Discharge Orders: Discharge Order (Routine); Ordered 03/13/25 Ordered By: Vilma Ch Patient Education: Endometritis (DC) Additional Instructions: Follow-up appointment scheduled with Dr. Ch at the [facility] on Monday03/17/25 at 9:10 AM Activity Level: Activity as Tolerated Discharge Diet: Diabetic Follow Up Appointments: Vilma Ch MD [Staff Physician, Obstetrics] Inez Canales DO [Primary Care Provider, Family Practice] Forms: [facility], [facility] Info Instructions
[2025-03-13] MEDS: FERROUS SULFATE 325 MG TABLET PO (10:20)
[2025-03-13] MEDS: DOCUSATE SODIUM 100 MG CAPSULE PO (10:20)
[2025-03-13 12:54] VITALS: BP 127/78; PULSE 56; RESP 17; TEMP 36.5; O2SAT 96
[2025-03-13 16:55] VITALS: BP 122/76; PULSE 60; RESP 18; TEMP 36.8; O2SAT 97
[2025-03-13 20:36] VITALS: BP 112/73; PULSE 58; RESP 18; TEMP 36.6; O2SAT 99
[2025-03-13] MEDS: GENTAMICIN 325 MG in 0.9 % SODIUM CHLORIDE 100 ml 100 ML 108 MG IVPB (20:40)
== END 2025-03-13 22:11 | disposition home or self-care (01) | DRG 776 ==
LOC: ED 18:35 → OB 18:42
PROVIDERS: Admitting Provider Student in an Organized Health Care Education/Training Program; Emergency Provider Student in an Organized Health Care Education/Training Program; PCP Family Medicine; Visit Provider Family Medicine
DX: O86.12 Endometritis following delivery (principal); O24.13 Pre-existing type 2 diabetes mellitus, in the puerperium; E11.9 Type 2 diabetes mellitus without complications; O90.81 Anemia of the puerperium; D64.9 Anemia, unspecified; Z79.4 Long term (current) use of insulin
CPT/HCPCS: 36415; 76830; 76856; 80053; 81001; 82962; 83605; 83735; 84484; 85018; 85025; 87040; 87631; 93005; 93976; 99284; 99285; A9270; G0378; J0736; J1580; J1815; J7030; J7050